=== PATIENT | female | born 1960 | race Caucasian/White ===

== ENCOUNTER 2021-06-02 15:41 | Outpatient (CLI) | payer MEDICARE, SELFPAY ==
[2021-06-02 18:04] LABS: SARS-CoV-2 RNA PCR Positive (Negative)
== END 2021-06-02 15:42 | disposition home or self-care (01) ==
LOC: CHSLAB 15:45
PROVIDERS: PCP Physician Assistant; Visit Provider Physician Assistant
DX: U07.1 COVID-19 (principal); B34.9 Viral infection, unspecified
CPT/HCPCS: C9803; U0003; U0005